=== PATIENT | female | born 2000 | race Two or more races ===

== ENCOUNTER 2019-03-13 06:55 | Emergency (ER) | payer OTHER ==
[~2019-03-13] VITALS: Ht 162.6 cm; Wt 67.6 kg
[2019-03-13 06:59] VITALS: BP 117/64
[2019-03-13] MEDS ORDERED: KETOROLAC 30 MG/1 ML ONE (07:28)
[2019-03-13] MEDS ORDERED: KETOROLAC 30 MG/1 ML IM ONE (07:30)
== END 2019-03-13 08:22 | disposition home or self-care (01) ==
LOC: ED 08:06
DX: S20.211A Contusion of right front wall of thorax, initial encounter (principal); W18.30XA Fall on same level, unspecified, initial encounter; Y93.89 Activity, other specified; Y92.69 Other specified industrial and construction area as the place of occurrence of the external cause; Y99.0 Civilian activity done for income or pay
CPT/HCPCS: 71101; 96372; 99283; J1885